=== PATIENT | female | born 1965 | race Two or more races ===

== ENCOUNTER 2019-04-26 19:12 | Inpatient (IN) | payer OTHER, MEDICAID ==
[~2019-04-26] VITALS: Ht 139.7 cm; Wt 75.9 kg
[2019-04-26] MEDS ORDERED: SODIUM CHLORIDE 0.9% 1,000 ML IV ONE (21:38)
[2019-04-26] MEDS ORDERED: ASPIRIN 81MG TABLET PO ONE (21:45)
[2019-04-26] MEDS ORDERED: ACETAMINOPHEN 500MG TABLET PO ONE (21:45)
[2019-04-26 22:37] LABS: BASOPHILS % 0.4 % (0.0-2.0); EOSINOPHILS % 0.9 % (0.0-5.0); HEMATOCRIT. 45.8 % (36.0-48.0); HEMOGLOBIN. 15.7 g/dL (12.0-16.0); LYMPHOCYTES % 11.8 % (20.0-50.0); MEAN CORPUSCULAR HEMOGLOBIN 30.6 pg (28.0-32.0); MEAN CORPUSCULAR VOLUME 89.2 fL (81.0-99.0); MEAN PLATELET VOLUME 10.3 fl (7.4-10.4); MONOCYTES % 5.7 % (2.0-8.0); NEUTROPHILS % 81.2 % (40.0-76.0); PLATELET 242 x1000/uL (130-400); RED BLOOD CELL COUNT 5.13 mill/uL (4.2-5.4); RED CELL DISTRIBUTION WIDTH 12.8 % (11.6-14.6)
[2019-04-26 22:41] LABS: CHLORIDE 104 mEq/L (98-107)
[2019-04-26] MEDS ORDERED: IOHEXOL-300 100 ML BOTTLE ONE (23:25)
[2019-04-27] MEDS ORDERED: ACETAMINOPHEN 325MG TABLET PO PRN (01:15)
[2019-04-27] MEDS ORDERED: GUAIFENESIN 200MG/10ML SUGAR FREE UDC PO PRN (01:15)
[2019-04-27] MEDS ORDERED: HYDROCODONE/ACETAMINOPHEN 5/325MG TABLET PO PRN ×2 (01:15→09:45)
[2019-04-27] MEDS ORDERED: DIPHENHYDRAMINE 50MG/ML VIAL IV PRN (01:15)
[2019-04-27] MEDS ORDERED: ACETAMINOPHEN 650MG SUPP PR PRN (01:15)
[2019-04-27] MEDS ORDERED: IPRATROPIUM/ALBUTEROL 0.5-3(2.5)MG/3ML NEB INH PRN (01:15)
[2019-04-27] MEDS ORDERED: ACETAMINOPHEN 650MG/20.3ML UDC GT PRN (01:15)
[2019-04-27] MEDS ORDERED: NA PHOS,M-B/NA PHOS,DI-BA ENEMA 118ML PR PRN (01:15)
[2019-04-27] MEDS ORDERED: ONDANSETRON HCL 4MG/2ML INJ IV PRN (01:15)
[2019-04-27] MEDS ORDERED: DOCUSATE SODIUM 100MG CAPSULE PO PRN (01:15)
[2019-04-27] MEDS ORDERED: CLONIDINE 0.1MG TABLET PO PRN ×2 (01:15→09:45)
[2019-04-27] MEDS ORDERED: MAGNESIUM/ALUMINUM HYDROXIDE/SIMETHICONE 30ML UDC PO PRN (01:15)
[2019-04-27 02:01] LABS: CLARITY URINE CLEAR (CLEAR); COLOR URINE YELLOW (YELLOW); KETONES URINE 1+ (NEGATIVE); LEUKOCYTE ESTERASE URINE 2+ (NEGATIVE); NITRITE URINE NEGATIVE (NEGATIVE); OCCULT BLOOD URINE NEGATIVE (NEGATIVE); PH URINE 6.5 (4.5-8.0); PROTEIN URINE NEGATIVE (NEGATIVE); SPECIFIC GRAVITY URINE 1.019 (1.005-1.030)
[2019-04-27 05:10] VITALS: BP 121/62
[2019-04-27] MEDS ORDERED: METF-416 MT (05:17)
[2019-04-27] MEDS ORDERED: GLIP10TA10 MT (05:17)
[2019-04-27] MEDS ORDERED: SITA100T11 MT (05:17)
[2019-04-27 05:24] VITALS: BP 121/62
[2019-04-27] MEDS: SODIUM CHLORIDE 0.9% INJ 3ML FLUSH IVF SCH ×3 (06:06→21:37)
[2019-04-27 06:14] LABS: *AMPHETAMINES SCREEN URINE NEGATIVE (NEGATIVE); *BARBITURATES SCREEN URINE NEGATIVE (NEGATIVE); *BENZODIAZEPINES SCREEN URINE NEGATIVE (NEGATIVE); *COCAINE SCREEN URINE NEGATIVE (NEGATIVE)
[2019-04-27 06:15] LABS: CANNABINOID URINE SCREEN NEGATIVE (NEGATIVE); METHADONE URINE SCREEN NEGATIVE (NEGATIVE); OPIATES URINE SCREEN NEGATIVE (NEGATIVE); PHENCYCLIDINE URINE SCREEN NEGATIVE (NEGATIVE)
[2019-04-27] MEDS ORDERED: DEXTROSE 50% WATER 50ML SYRINGE IV PRN (07:30)
[2019-04-27 08:00] VITALS: BP 128/66
[2019-04-27] MEDS ORDERED: ENOXAPARIN 40MG/0.4ML SYR SUBCUT SCH (09:00)
[2019-04-27] MEDS: ENOXAPARIN 40MG/0.4ML SYR SUBCUT SCH (09:51)
[2019-04-27] MEDS ORDERED: IOHEXOL-350 100 ML BOTTLE ONE (11:36)
[2019-04-27] MEDS: BLOOD SUGAR DIAGNOSTIC STRIP TEST SCH ×3 (11:55→20:03)
[2019-04-27 12:00] VITALS: BP 121/68
[2019-04-27] MEDS: LEVOFLOXACIN 500MG TABLET PO SCH (12:04)
[2019-04-27] MEDS: INSULIN LISPRO 100 UNITS/ML SUBCUT SCH ×3 (12:05→21:39)
[2019-04-27 13:10] LABS: BASOPHILS % 0.5 % (0.0-2.0); EOSINOPHILS % 1.6 % (0.0-5.0); HEMATOCRIT. 43.6 % (36.0-48.0); HEMOGLOBIN. 14.8 g/dL (12.0-16.0); LYMPHOCYTES % 23.6 % (20.0-50.0); MEAN CORPUSCULAR HEMOGLOBIN 30.3 pg (28.0-32.0); MEAN CORPUSCULAR VOLUME 89.1 fL (81.0-99.0); MEAN PLATELET VOLUME 9.8 fl (7.4-10.4); MONOCYTES % 9.6 % (2.0-8.0); NEUTROPHILS % 64.7 % (40.0-76.0); PLATELET 216 x1000/uL (130-400); RED BLOOD CELL COUNT 4.89 mill/uL (4.2-5.4); RED CELL DISTRIBUTION WIDTH 12.6 % (11.6-14.6)
[2019-04-27 13:36] LABS: CHLORIDE 105 mEq/L (98-107)
[2019-04-27 13:43] LABS: LDL CHOLESTEROL 82 mg/dL (5-100)
[2019-04-27 13:45] LABS: CREATINE KINASE 72 IU/L (26-192); HDL CHOLESTEROL 41 mg/dL (40-59)
[2019-04-27 13:48] LABS: CREATINE KINASE MB FRACTION < 1.0 ng/mL (0.5-3.6)
[2019-04-27 16:00] VITALS: BP 101/53
[2019-04-27 17:44] LABS: CREATINE KINASE 73 IU/L (26-192)
[2019-04-27 17:45] LABS: CREATINE KINASE MB FRACTION < 1.0 ng/mL (0.5-3.6)
[2019-04-27 20:00] VITALS: BP 140/72
[2019-04-28] VITALS: BP 101/63
[2019-04-28 04:00] VITALS: BP 109/62
[2019-04-28] MEDS: BLOOD SUGAR DIAGNOSTIC STRIP TEST SCH ×3 (05:49→17:04)
[2019-04-28] MEDS: SODIUM CHLORIDE 0.9% INJ 3ML FLUSH IVF SCH ×2 (06:35→14:00)
[2019-04-28] MEDS: INSULIN LISPRO 100 UNITS/ML SUBCUT SCH ×3 (06:37→17:03)
[2019-04-28 08:00] VITALS: BP 115/60
[2019-04-28 08:03] LABS: BASOPHILS % 0.6 % (0.0-2.0); EOSINOPHILS % 2.3 % (0.0-5.0); HEMATOCRIT. 46.1 % (36.0-48.0); HEMOGLOBIN. 15.5 g/dL (12.0-16.0); LYMPHOCYTES % 27.8 % (20.0-50.0); MEAN CORPUSCULAR VOLUME 89.3 fL (81.0-99.0); MEAN PLATELET VOLUME 9.5 fl (7.4-10.4); MONOCYTES % 9.6 % (2.0-8.0); NEUTROPHILS % 59.7 % (40.0-76.0); PLATELET 195 x1000/uL (130-400); RED BLOOD CELL COUNT 5.16 mill/uL (4.2-5.4); RED CELL DISTRIBUTION WIDTH 12.6 % (11.6-14.6)
[2019-04-28 08:32] LABS: CHLORIDE 106 mEq/L (98-107)
[2019-04-28 08:52] LABS: LDL CHOLESTEROL 93 mg/dL (5-100)
[2019-04-28 08:54] LABS: HDL CHOLESTEROL 43 mg/dL (40-59)
[2019-04-28] MEDS: LEVOFLOXACIN 500MG TABLET PO SCH (10:11)
[2019-04-28] MEDS: ENOXAPARIN 40MG/0.4ML SYR SUBCUT SCH (10:11)
[2019-04-28 12:00] VITALS: BP 112/63
[2019-04-28 16:00] VITALS: BP 107/65
[2019-04-28 17:54] VITALS: BP 112/63
== END 2019-04-28 18:35 | disposition home or self-care (01) | DRG 463 ==
LOC: EDBD 19:12 → ER 19:12 → 7WST 23:57 → UNDOADMIN 23:57 → 5WST 23:57 → EDBEDREQTM 04-27 03:17 → EDBEDREQ 04-27 03:17 → ENRESERV 04-27 03:40
PROVIDERS: ADMIT Family Medicine; ATTEND Family Medicine
DX: N39.0 Urinary tract infection, site not specified (principal); E66.01 Morbid (severe) obesity due to excess calories; K76.89 Other specified diseases of liver; D25.9 Leiomyoma of uterus, unspecified; E11.9 Type 2 diabetes mellitus without complications; E78.5 Hyperlipidemia, unspecified; I10 Essential (primary) hypertension; Z79.4 Long term (current) use of insulin; Z68.38 Body mass index [BMI] 38.0-38.9, adult; Z91.14 Patient's other noncompliance with medication regimen
CPT/HCPCS: 36415; 71045; 71275; 74177; 76700; 80061; 80305; 82550; 82553; 82962; 83036; 83880; 84439; 84443; 84484; 85379; 93005; 93306; 93970; 96374; 99285; J1650; J1815; J7030; Q9967